=== PATIENT | female | born 1955 | race Caucasian/White ===

== ENCOUNTER 2016-12-28 06:20 | Emergency (ER) | payer MEDICARE, SELFPAY ==
[2016-12-28 07:45] LABS: HEMOGLOBIN 13.8 gm/dl (12.3-15.3); RED BLOOD COUNT 4.63 M/UL (4.00-5.10); WHITE BLOOD COUNT 8.1 K/UL (4.5-11.0)
[2016-12-28 08:15] LABS: BUN/CREATININE RATIO 29 (0-10)
== END 2016-12-28 15:10 | disposition home or self-care (01) ==
LOC: ER1 06:20
PROVIDERS: Physician Assistant
DX: R07.9 Chest pain, unspecified (principal); R11.0 Nausea; I25.10 Atherosclerotic heart disease of native coronary artery without angina pectoris; I10 Essential (primary) hypertension; J44.9 Chronic obstructive pulmonary disease, unspecified; J45.909 Unspecified asthma, uncomplicated; Z88.8 Allergy status to other drugs, medicaments and biological substances; Z79.899 Other long term (current) drug therapy
CPT/HCPCS: 36415; 71010; 80053; 82550; 82553; 83874; 84484; 85025; 93005; 93017; 99285

== ENCOUNTER → 2017-01-04 | Outpatient (CLI) | payer MEDICARE, SELFPAY ==
[~2017-01-04] MED LIST: BREO ELLIPTA 11 EACH INH; IPRAT-ALBUT 0.5-3 ML INH; KLONOPIN TAB 00.5 MG PO; LEVAQUIN500 MG PO; LEVAQUIN750 MG PO; LEVOTHYROXINE75 MCG PO; LOSARTAN POTASS50 MG PO; OMEPRAZOLE40 MG PO; PREDNISONE10 M1 PO; PREDNISONE10 MG PO; PROAIR HFA8.5 GM INH; PROTONIX 40 MG40 M1 PO; SPIRIVA HANDIH18 MCG INH; THEOPHYLLINE400 MG PO
== END ==
LOC: HEART 5 08:00
DX: R07.9 Chest pain, unspecified (principal)
CPT/HCPCS: 78452; A9502; J2785

== ENCOUNTER 2017-01-16 10:37 | Inpatient (IN) | payer MEDICARE, SELFPAY ==
[~2017-01-16] VITALS: Ht 170.2 cm; Wt 66.7 kg
[2017-01-16 11:48] LABS: HEMOGLOBIN 14.9 gm/dl (12.3-15.3); RED BLOOD COUNT 4.98 M/UL (4.00-5.10); WHITE BLOOD COUNT 13.4 K/UL (4.5-11.0)
[2017-01-16 12:10] LABS: BUN/CREATININE RATIO 19 (0-10)
[2017-01-16] MEDS ORDERED: LOSARTAN POTASS50 MG PO (17:52)
[2017-01-16] MEDS ORDERED: LEVOTHYROXINE75 MCG PO (17:53)
[2017-01-16] MEDS ORDERED: THEOPHYLLINE400 MG PO (17:53)
[2017-01-16] MEDS ORDERED: BREO ELLIPTA 11 EACH INH (17:53)
[2017-01-16] MEDS ORDERED: SPIRIVA HANDIH18 MCG INH (17:54)
[2017-01-16] MEDS ORDERED: PROAIR HFA8.5 GM INH (17:55)
[2017-01-16] MEDS ORDERED: OMEPRAZOLE40 MG PO (17:55)
[2017-01-16] MEDS ORDERED: PREDNISONE10 MG PO (17:56)
[2017-01-17 06:29] LABS: WHITE BLOOD COUNT 11.9 K/UL (4.5-11.0)
[2017-01-17 06:32] LABS: HEMOGLOBIN 12.3 gm/dl (12.3-15.3); RED BLOOD COUNT 4.12 M/UL (4.00-5.10)
[2017-01-17 06:45] LABS: BUN/CREATININE RATIO 15 (0-10)
[2017-01-18 04:16] LABS: HEMOGLOBIN 11.7 gm/dl (12.3-15.3); RED BLOOD COUNT 3.96 M/UL (4.00-5.10)
[2017-01-18 04:23] LABS: WHITE BLOOD COUNT 7.3 K/UL (4.5-11.0)
[2017-01-18 04:47] LABS: BUN/CREATININE RATIO 12 (0-10)
[2017-01-19 04:23] LABS: BUN/CREATININE RATIO 16 (0-10)
[2017-01-20 04:56] LABS: HEMOGLOBIN 11.8 gm/dl (12.3-15.3); RED BLOOD COUNT 4.01 M/UL (4.00-5.10); WHITE BLOOD COUNT 8.1 K/UL (4.5-11.0)
[2017-01-20 05:16] LABS: BUN/CREATININE RATIO 23 (0-10)
[2017-01-21 06:08] LABS: BUN/CREATININE RATIO 22 (0-10)
[2017-01-22 07:26] LABS: BUN/CREATININE RATIO 24 (0-10)
[2017-01-22] MEDS ORDERED: KLONOPIN TAB 00.5 MG PO (13:54)
[2017-01-22] MEDS ORDERED: LEVAQUIN750 MG PO (13:56)
[2017-01-22] MEDS ORDERED: PREDNISONE10 M1 PO (13:56)
== END 2017-01-22 14:25 | disposition home or self-care (01) | DRG 871 ==
LOC: ER1 10:37 → ZEROF 13:41 → PROG CARE 13:41 → MED SURG 4 13:41 → PROG CARE 01-18 20:05 → MED SURG 4 01-21 16:15
PROVIDERS: Emergency Medicine; Internal Medicine; ADMIT Internal Medicine
DX: A41.9 Sepsis, unspecified organism (principal); J96.21 Acute and chronic respiratory failure with hypoxia; J44.0 Chronic obstructive pulmonary disease with (acute) lower respiratory infection; J44.1 Chronic obstructive pulmonary disease with (acute) exacerbation; E87.2 Acidosis; J20.9 Acute bronchitis, unspecified; I10 Essential (primary) hypertension; E03.9 Hypothyroidism, unspecified; Z87.891 Personal history of nicotine dependence; Z90.710 Acquired absence of both cervix and uterus; Z86.73 Personal history of transient ischemic attack (TIA), and cerebral infarction without residual deficits; E87.6 Hypokalemia; R00.0 Tachycardia, unspecified; R73.9 Hyperglycemia, unspecified
CPT/HCPCS: 36415; 36600; 71010; 71020; 80048; 80053; 80198; 80202; 81001; 82550; 82553; 82803; 82962; 83036; 83605; 83735; 83874; 83880; 84132; 84439; 84443; 84484; 85025; 85027; 87040; 87070; 87086; 87205; 93005; 94640; 94664; 96361; 96374; 96375; 99285; J0456; J0696; J1885; J1956; J2543; J2920; J2930; J3370; J7030; J7050; J7070

== ENCOUNTER 2017-03-24 06:29 | Inpatient (IN) | payer MEDICARE, OTHER ==
[~2017-03-24] VITALS: Ht 170.2 cm; Wt 67.6 kg
[~2017-03-24 06:29] MED LIST changes: -IPRAT-ALBUT 0.5-3 ML INH; -LEVAQUIN500 MG PO; -PROTONIX 40 MG40 M1 PO
[2017-03-24 08:04] LABS: HEMOGLOBIN 14.7 gm/dl (12.3-15.3); RED BLOOD COUNT 4.96 M/UL (4.00-5.10); WHITE BLOOD COUNT 4.6 K/UL (4.5-11.0)
[2017-03-24 08:24] LABS: BUN/CREATININE RATIO 17 (0-10)
[2017-03-24] MEDS ORDERED: IPRAT-ALBUT 0.5-3 ML INH (16:56)
[2017-03-24] MEDS ORDERED: BREO ELLIPTA 11 EACH INH (16:57)
[2017-03-25 06:31] LABS: HEMOGLOBIN 12.9 gm/dl (12.3-15.3); WHITE BLOOD COUNT 5.3 K/UL (4.5-11.0)
[2017-03-25 06:33] LABS: RED BLOOD COUNT 4.24 M/UL (4.00-5.10)
[2017-03-25 06:50] LABS: BUN/CREATININE RATIO 20 (0-10)
[2017-03-26 06:31] LABS: HEMOGLOBIN 12.8 gm/dl (12.3-15.3); RED BLOOD COUNT 4.4 M/UL (4.00-5.10)
[2017-03-26 06:46] LABS: WHITE BLOOD COUNT 8.1 K/UL (4.5-11.0)
[2017-03-26 06:59] LABS: BUN/CREATININE RATIO 25 (0-10)
--- NOTE | 2017-03-27 06:02 | NUR ---
2101 CALLED TO GIVE REPORT ON PCU WITH NO ANSWER.------LONNIE NAVARRO LPN 2105 CALLED TO GIVE REPORT ON PCU WITH NO ANSWER.------LONNIE NAVARRO LPN 2122 CALLED TO GIVE REPORT ON PCU. MARC HEALY ANSWERED AND STATED THE NURSE WAS IN A ROOM AND WILL CALL BACK. LONNIE NAVARRO LPN
[2017-03-28 04:40] LABS: HEMOGLOBIN 12.2 gm/dl (12.3-15.3); RED BLOOD COUNT 4.18 M/UL (4.00-5.10); WHITE BLOOD COUNT 5.4 K/UL (4.5-11.0)
[2017-03-28 05:00] LABS: BUN/CREATININE RATIO 24 (0-10)
[2017-03-29 03:03] LABS: HEMOGLOBIN 11.9 gm/dl (12.3-15.3); RED BLOOD COUNT 4.11 M/UL (4.00-5.10); WHITE BLOOD COUNT 5.5 K/UL (4.5-11.0)
[2017-03-29 03:19] LABS: BUN/CREATININE RATIO 20 (0-10)
[2017-03-29] MEDS ORDERED: LEVAQUIN500 MG PO (12:05)
[2017-03-29] MEDS ORDERED: PROTONIX 40 MG40 M1 PO (12:10)
== END 2017-03-29 13:48 | disposition home or self-care (01) | DRG 189 ==
LOC: ER1 06:29 → ZEROF 12:30 → M/S 16:36 → PROG CARE 03-26 22:09
PROVIDERS: Physician Assistant; ADMIT Internal Medicine
DX: J96.21 Acute and chronic respiratory failure with hypoxia (principal); J44.0 Chronic obstructive pulmonary disease with (acute) lower respiratory infection; E87.2 Acidosis; J20.9 Acute bronchitis, unspecified; J44.1 Chronic obstructive pulmonary disease with (acute) exacerbation; I10 Essential (primary) hypertension; E87.6 Hypokalemia; R04.0 Epistaxis; E03.9 Hypothyroidism, unspecified; Z99.81 Dependence on supplemental oxygen; Z87.891 Personal history of nicotine dependence
CPT/HCPCS: 36415; 36600; 70486; 71010; 80053; 82550; 82553; 82803; 83605; 83735; 83874; 84132; 84484; 85025; 85027; 85610; 87040; 87070; 87205; 93005; 94640; 94664; 96374; 99284; J1650; J1956; J2543; J2930; J7030; J7050

== ENCOUNTER 2021-01-26 07:57 | Emergency (ER) | payer MEDICARE, OTHER ==
[~2021-01-26 07:57] MED LIST changes: +IPRAT-ALBUT 0.5-3 ML INH; +LEVAQUIN500 MG PO; +PREDNISONE20 MG PO; +PROTONIX 40 MG40 M1 PO; +VIBRAMYCIN100 MG PO
[2021-01-26 08:43] LABS: HEMOGLOBIN 14.5 gm/dl (12.3-15.3); RED BLOOD COUNT 4.82 M/UL (4.00-5.10); WHITE BLOOD COUNT 9.5 K/UL (4.5-11.0)
[2021-01-26 09:12] LABS: BUN/CREATININE RATIO 16 (0-10)
[2021-01-26] MEDS ORDERED: PREDNISONE 50 M50 MG PO (10:58)
== END 2021-01-26 11:20 | disposition home or self-care (01) ==
LOC: ER1 07:57
PROVIDERS: Student in an Organized Health Care Education/Training Program
DX: J44.1 Chronic obstructive pulmonary disease with (acute) exacerbation (principal); Z20.822 Contact with and (suspected) exposure to COVID-19; I48.91 Unspecified atrial fibrillation
CPT/HCPCS: 0240U; 36600; 71045; 80053; 82550; 82553; 82803; 83735; 83874; 83880; 84100; 84484; 85025; 85379; 93005; 99285

== ENCOUNTER → 2021-05-06 | Outpatient (CLI) | payer MEDICARE ==
[~2021-05-06] MED LIST changes: +PREDNISONE 50 M50 MG PO
[2021-05-06 08:17] LABS: HEMOGLOBIN 14.6 gm/dl (12.3-15.3); RED BLOOD COUNT 4.81 M/UL (4.00-5.10); WHITE BLOOD COUNT 9.1 K/UL (4.5-11.0)
== END ==
LOC: LAB 06:22
PROVIDERS: Nurse Practitioner Family
DX: I10 Essential (primary) hypertension (principal); E78.5 Hyperlipidemia, unspecified; E03.9 Hypothyroidism, unspecified; E55.9 Vitamin D deficiency, unspecified
CPT/HCPCS: 36415; 80053; 80061; 81001; 84439; 84443; 85025

== ENCOUNTER → 2021-05-16 | Outpatient (CLI) | payer MEDICARE | LOC: KOH-I 09:40 | DX: Z87.891 Personal history of nicotine dependence (principal) | CPT/HCPCS: 71271 ==

== ENCOUNTER → 2021-10-31 | Outpatient (CLI) | payer MEDICARE | LOC: EXRD 11:25 | DX: J44.9 Chronic obstructive pulmonary disease, unspecified (principal); R05.9 Cough, unspecified; Z20.822 Contact with and (suspected) exposure to COVID-19; J84.9 Interstitial pulmonary disease, unspecified | CPT/HCPCS: 71046 ==

== ENCOUNTER 2022-03-14 07:09 | Inpatient (IN) | payer MEDICARE ==
[~2022-03-14] VITALS: Ht 170.2 cm; Wt 63.5 kg
[~2022-03-14 07:09] MED LIST changes: +EUTHYROX50 MCG PO; -LEVOTHYROXINE75 MCG PO
[2022-03-14 08:08] LABS: HEMOGLOBIN 14.1 gm/dl (12.3-15.3); RED BLOOD COUNT 4.78 M/UL (4.00-5.10)
[2022-03-14 08:31] LABS: BUN/CREATININE RATIO 12 (0-10)
[2022-03-14] MEDS ORDERED: CRESTOR10 MG PO (10:43)
[2022-03-14] MEDS ORDERED: METOPROLOL TART25 MG PO (10:43)
[2022-03-14] MEDS ORDERED: ALENDRONATE SOD70 MG PO (10:43)
[2022-03-14] MEDS ORDERED: VITAMIN D21250 MCG PO (10:43)
[2022-03-14] MEDS ORDERED: SERTRALINE HCL100 MG PO (10:43)
[2022-03-14] MEDS ORDERED: MULTAQ 400 MG400 MG PO (10:44)
[2022-03-14] MEDS ORDERED: STIOLTO RESPIMAT4 GM INH (10:44)
[2022-03-14] MEDS ORDERED: ELIQUIS5 MG PO (10:44)
[2022-03-15 06:49] LABS: HEMOGLOBIN 13.8 gm/dl (12.3-15.3); RED BLOOD COUNT 4.65 M/UL (4.00-5.10); WHITE BLOOD COUNT 18.9 K/UL (4.5-11.0)
[2022-03-15 07:13] LABS: BUN/CREATININE RATIO 17 (0-10)
[2022-03-16 05:46] LABS: HEMOGLOBIN 14.2 gm/dl (12.3-15.3); RED BLOOD COUNT 4.76 M/UL (4.00-5.10)
[2022-03-16 05:47] LABS: WHITE BLOOD COUNT 25.5 K/UL (4.5-11.0)
[2022-03-16 07:06] LABS: BUN/CREATININE RATIO 21 (0-10)
--- NOTE | 2022-03-16 16:10 | NUR ---
TELEMETRY NOTIFIED RN OF PATIENT'S 4 BEAT RUN OF NSVT. RN NOTIFIED DR. MOJGAN MD STATED SHE WOULD PUT IN ORDERS TO OBTAIN ELECTROLYTE LEVELS ON PATIENT. NO S/SX OF PAIN OR DISTRESS NOTED TO PATIENT.
[2022-03-16 16:54] LABS: BUN/CREATININE RATIO 21 (0-10)
[2022-03-17 06:16] LABS: HEMOGLOBIN 13.5 gm/dl (12.3-15.3); RED BLOOD COUNT 4.59 M/UL (4.00-5.10); WHITE BLOOD COUNT 21.1 K/UL (4.5-11.0)
[2022-03-17 06:39] LABS: BUN/CREATININE RATIO 21 (0-10)
[2022-03-18 03:23] LABS: HEMOGLOBIN 13.2 gm/dl (12.3-15.3); RED BLOOD COUNT 4.54 M/UL (4.00-5.10); WHITE BLOOD COUNT 20.6 K/UL (4.5-11.0)
[2022-03-18] MEDS ORDERED: MEDROL4 MG PO (10:49)
[2022-03-18] MEDS ORDERED: HUMIBID LA TAB600 MG PO (10:49)
[2022-03-18] MEDS ORDERED: ZOFRAN 4 MG TAB4 MG PO (10:56)
[2022-03-19 16:54] LABS: WHITE BLOOD COUNT 18.6 K/UL (4.5-11.0)
== END 2022-03-18 13:09 | disposition home or self-care (01) | DRG 202 ==
LOC: ER1 07:09 → CDU 09:21 → MED SURG 4 10:39
PROVIDERS: Emergency Medicine; Physician Assistant Medical; ADMIT Internal Medicine
DX: J20.9 Acute bronchitis, unspecified (principal); J44.1 Chronic obstructive pulmonary disease with (acute) exacerbation; J44.0 Chronic obstructive pulmonary disease with (acute) lower respiratory infection; I48.0 Paroxysmal atrial fibrillation; E07.9 Disorder of thyroid, unspecified; M81.0 Age-related osteoporosis without current pathological fracture; F41.9 Anxiety disorder, unspecified; I10 Essential (primary) hypertension; E55.9 Vitamin D deficiency, unspecified; I25.10 Atherosclerotic heart disease of native coronary artery without angina pectoris; E03.9 Hypothyroidism, unspecified; E78.5 Hyperlipidemia, unspecified; Z99.81 Dependence on supplemental oxygen; Z90.710 Acquired absence of both cervix and uterus; Z98.890 Other specified postprocedural states; Z87.891 Personal history of nicotine dependence
CPT/HCPCS: 0240U; 36415; 36600; 71045; 74160; 80048; 80053; 81001; 82550; 82553; 82803; 82962; 83605; 83735; 83880; 84484; 85025; 85027; 87040; 87070; 87086; 87205; 93005; 94640; 94664; 94760; 96374; 96375; 96376; 99285; G0378; J0696; J2405; J2550; J2930; J7040; Q9967

== ENCOUNTER → 2022-06-04 | Emergency (ER) | payer MEDICARE ==
[~2022-06-04] MED LIST changes: +ALENDRONATE SOD70 MG PO; +CRESTOR10 MG PO; +ELIQUIS5 MG PO; +HUMIBID LA TAB600 MG PO; +MEDROL4 MG PO; +METOPROLOL TART25 MG PO; +MULTAQ 400 MG400 MG PO; +SERTRALINE HCL100 MG PO; +STIOLTO RESPIMAT4 GM INH; +VITAMIN D21250 MCG PO; +ZOFRAN 4 MG TAB4 MG PO
== END | disposition home or self-care (01) ==
LOC: ER1 15:04
DX: R04.0 Epistaxis (principal); J44.9 Chronic obstructive pulmonary disease, unspecified
CPT/HCPCS: 30901; 99283